=== PATIENT | female | born 1965 | race Caucasian/White ===

== ENCOUNTER 2017-09-06 18:41 | Inpatient (IN) | payer OTHER ==
[~2017-09-06] VITALS: Ht 175.3 cm; Wt 85.1 kg
[2017-09-06 19:23] LABS: ABSOLUTE BASOPHIL COUNT 0 /CUMM (0.0-0.2); ABSOLUTE EOSINOPHIL COUNT 0.2 /CUMM (0.0-0.7); ABSOLUTE GRANULOCYTE CT 5.3 /CUMM (1.4-6.5); ABSOLUTE LYMPH COUNT 1.8 /CUMM (1.2-3.4); ABSOLUTE MONOCYTE COUNT 0.6 /CUMM (0.10-0.60); BASOPHIL % 0.2 % (0.0-2.0); EOSINOPHIL % 2.7 % (0-5); GRANULOCYTE % 66.6 % (42.2-75.2); HEMATOCRIT 35.3 % (37-47); MEAN CORPUSCULAR HGB 28.6 PG (27.0-31.0); MEAN CORPUSCULAR HGB CONC 33.4 G/DL (33.0-37.0); MEAN CORPUSCULAR VOLUME 85.7 FL (81.0-99.0); MEAN PLATELET VOLUME 8.6 FL (7.4-10.4); PLATELET COUNT 221 /CUMM (130-400); RBC DISTRIBUTION WIDTH 13.1 % (11.5-14.5); RED BLOOD CELL CT 4.12 /CUMM (4.20-5.40)
--- NOTE | 2017-09-06 21:09 | ED GI/GU/ABDOMINAL COMPLAINT ---
History of Present Illness General Chief Complaint: Abdominal Pain/Flank Pain Stated Complaint: ABD PAIN X ALL DAY Source: patient Exam Limitations: no limitations Vital Signs & Intake/Output Vital Signs & Intake/Output Vital Signs Date Time Temp Pulse Resp B/P B/P Pulse O2 O2 Flow FiO2 Mean Ox Delivery Rate 09/06 2346 100.4 108 18 128/60 95 Room Air 09/06 2225 101.3 116 18 109/55 96 Room Air 09/06 2057 Room Air 09/06 1915 98.2 87 18 117/66 Room Air ED Intake and Output 09/07 0000 09/06 1200 Intake Total Output Total Balance Patient 174 lb Weight Weight Estimated Measurement Method Triage Note: RECEIVED 51 YO FEMALE C/O BILATERAL LOWER ABDOMINAL PAIN, STARTED THIS AM, GETTING PROGRESSIVELY WORSE THROUGH THE DAY. PT STATED PAIN IS SHARP AND BURNING. NO URINARY ISSUES EXCEPT PT WITH PMX OF DROPPED BLADDER. Triage Nurses Notes Reviewed? yes ? N Is pt currently ? No Onset: Abrupt Duration: day(s): (1), constant Timing: recent history Quality/Severity: cramping Location: LOWER ABD Radiation: no radiation Activities at Onset: none HPI: 51-year-old female comes into the emergency room with complaints of lower abdominal pain cramping as well as some loose stool. Symptoms began this morning. Pain is gone progressively worse. Decreased appetite. Denies any vomiting. Some associated nausea. ([facility]) Allergies Coded Allergies: amoxicillin (From AUGMENTIN) (Severe, SEVERE NAUSEA 09/06/17) clavulanic acid (From AUGMENTIN) (Severe, SEVERE NAUSEA 09/06/17) Reconcile Medications Docusate Sodium (Colace) 100 MG CAPSULE 1 CAP PO BID while on pain medications Lisinopril/Hydrochlorothiazide (Lisinopril-Hctz 10-12.5 MG Tab) 10 MG-12.5 MG TABLET 1 TAB PO DAILY htn (Reported) Meloxicam 15 MG TABLET 1 TAB PO DAILY chronic back pain (Reported) Oxycodone HCl/Acetaminophen (Oxycodone-Acetaminophen 5-325) 5 MG-325 MG TABLET 1 TAB PO Q4-6 PRN PAIN CONTROL Polyethylene Glycol 3350 (Miralax) 17 GRAM/DOSE POWDER 17 GM PO DAILY while on pain medication mix with water, juice, soda, coffee or tea Pregabalin (Lyrica) 25 MG CAPSULE 1 CAP PO DAILY fibromyalgia (Reported) (Yevgeniy NGUYỄN,Epifanio Lucero) Past History Travel History Traveled to [place] past 21 day No Medical History Any Pertinent Medical History? see below for history Neurological: NONE EENT: NONE Cardiovascular: hypertension Respiratory: NONE Gastrointestinal: NONE Hepatic: NONE Renal: NONE Musculoskeletal: NONE Psychiatric: NONE Endocrine: NONE Blood Disorders: NONE Cancer(s): NONE Pneumonia Vaccine: 10/19/11 Surgical History Surgical History: NO ABDOMINAL SUGERIES Psychosocial History What is your primary language Romanian Tobacco Use: Current Daily Use Daily Tobacco Use Amount/Type: Smokeless tobacco daily Family History Hx Contributory? No ([facility]) Review of Systems Review of Systems Constitutional: Reports: no symptoms. EENTM: Reports: no symptoms. Respiratory: Reports: no symptoms. Cardiovascular: Reports: no symptoms. GI: Reports: see HPI. Genitourinary: Reports: no symptoms. Musculoskeletal: Reports: no symptoms. Skin: Reports: no symptoms. Neurological/Psychological: Reports: no symptoms. Hematologic/Endocrine: Reports: no symptoms. Immunologic/Allergic: Reports: no symptoms. All Other Systems: Reviewed and Negative ([facility]) Physical Exam Physical Exam General Appearance: well developed/nourished, no apparent distress, alert Head: atraumatic, normal appearance Eyes: Bilateral: normal appearance, EOMI. Ears, Nose, Throat, Mouth: hearing grossly normal, moist mucous membrane Neck: normal inspection Respiratory: normal breath sounds, no respiratory distress Cardiovascular: regular rate/rhythm Gastrointestinal: soft, TENDERNESS LOWER ABD Back: normal inspection Extremities: normal range of motion Neurologic/Psych: awake, alert, oriented x 3 Skin: intact, normal color Core Measures ACS in differential dx? No Sepsis Present: No Sepsis Focused Exam Completed? No ([facility]) Progress Differential Diagnosis: appendicitis, diverticulitis, ectopic , gastritis, ischemic bowel, kidney stone, perforated viscous, SBO, UTI/pyelo Plan of Care: Orders Procedure Date/time Status Nothing by Mouth 09/07 B Active Vital Signs 09/08 31 Active Teach/Educate 09/08 31 Active Pain Treatment and Response 09/08 31 Active Nutritional Intake, Monitor 09/08 31 Active Isolation 09/08 31 Active Intake & Output 09/08 31 Active Patient Care Conference 05/16 0032 Active Activity/Ambulation 09/07 0032 Active MISSING MEDICATION FORM 09/07 UNK Active FingerStick- Glucose 09/[address] in observation 09/06 2217 Active ED Holding Orders 09/06 2217 Active Code Status 09/06 2217 Active Pathway - chart 09/06 2141 Active Patient Data 09/06 2141 Active Add-on Test (ER Only) 09/07 2115 Active EKG 09/07 2115 Active PARTIAL THROMBOPLASTIN TIME 09/06 190 Complete PROTHROMBIN TIME 09/06 190 Complete URINALYSIS 09/06 184 Complete LIPASE 09/06 184 Complete COMPREHENSIVE METABOLIC PANEL 09/06 184 Complete CBC WITHOUT DIFFERENTIAL 09/06 184 Complete INCENTIVE SPIROMETRY TRX (GEN) 09/06 UNK Active VTE Mechanical Prophylaxis 09/06 UNK Active Vital Signs 09/06 UNK Active Intake & Output 09/06 UNK Active Activity/Ambulation 09/06 UNK Active Current Medications Sig/Kaden Start time Last Medication Dose Stop Time Status Admin Docusate Sodium 100 MG BID 09/07 09 AC (Colace) Pantoprazole Sodium 40 MG DAILY 09/07 09 AC (Protonix) Polyethylene Glycol 17 GM DAILY 09/07 09 AC (Miralax) Ampicillin Sodium/ 3,000 MG Q6H 09/07 0400 AC Sulbactam Sodium (Unasyn) Sodium Chloride 100 ML (Normal Saline 0.9%) Heparin Sodium 5,000 UNIT Q8 09/06 2200 AC (Porcine) Acetaminophen 1,000 MG Q8P PRN 09/06 2144 AC (Tylenol) Diphenhydramine HCl 50 MG Q6P PRN 09/06 2144 AC (Benadryl) Lactated Ringer's 1,000 ML Q8H 09/06 214 AC 09/06 (Lactated Ringers) 2223 Morphine Sulfate 2 MG Q4P PRN 09/06 2144 AC (MORPHINE SULFATE) Morphine Sulfate 4 MG Q4P PRN 09/06 2144 AC 09/06 (MORPHINE SULFATE) 2351 Ondansetron HCl 4 MG Q6P PRN 09/06 2144 AC (Zofran) Oxycodone HCl 10 MG Q4-6 PRN PRN 09/06 2144 AC (Roxicodone) Oxycodone/ 1 TAB Q4P PRN 09/06 2144 AC Acetaminophen (Percocet) Buspirone HCl 10 MG ONCE ONE 09/06 2129 CAN (Buspar) 09/06 2130 Escitalopram Oxalate 10 MG ONCE ONE 09/06 2129 CAN (Lexapro) 09/06 2130 Trazodone HCl 25 MG ONCE ONE 09/06 2129 CAN (Desyrel) 09/06 2130 Laboratory Tests 09/06/171904: Urine Color YEL, Urine Clarity CLEAR, Urine pH 7.0, Ur Specific [place] 1.010, Urine Protein NEG, Urine Ketones NEG, Urine Nitrite NEG, Urine Bilirubin NEG, Urine Urobilinogen 0.2, Ur Leukocyte Esterase NEG, Ur Microscopic EXAM NOT REQUIRED, Urine Hemoglobin NEG, Urine Glucose NEG 09/06/171899: Anion Gap 12, Estimated GFR > 60, BUN/Creatinine Ratio 16.7, Glucose 111 H, Calcium 9.8, Total Bilirubin 0.4, AST 21, ALT 31, Alkaline Phosphatase 45, Total Protein 6.4, Albumin 3.8, Globulin 2.6, Albumin/Globulin Ratio 1.5, Lipase 110, PT 10.4, INR 0.95, APTT 31, CBC w Diff NO MAN DIFF REQ, RBC 4.12 L, MCV 85.7, MCH 28.6, MCHC 33.4, RDW 13.1, MPV 8.6, Gran % 66.6, Lymphocytes % 22.6, Monocytes % 7.9, Eosinophils % 2.7, Basophils % 0.2, Absolute Granulocytes 5.3, Absolute Lymphocytes 1.8, Absolute Monocytes 0.6, Absolute Eosinophils 0.2, Absolute Basophils 0 Diagnostic Imaging: Viewed by Me: CT Scan. Discussed w/RAD: CT Scan. Radiology Impression: PATIENT: DIANNA CASE PRESENT AGE: 51 PATIENT ACCOUNT NO: [id number] : 66 LOCATION: [facility] ORDERING PHYSICIAN: Xavi WEIR SERVICE DATE: 09/06/17 EXAM TYPE: CAT - CT ABD & PELVIS W IV CONTRAST EXAMINATION: CT ABDOMEN AND PELVIS WITH CONTRAST CLINICAL INFORMATION: Diffuse abdominal pain. COMPARISON: CT scan abdomen pelvis 11/14/2012 TECHNIQUE: Multidetector volumetric imaging was performed of the abdomen and pelvis following IV administration of 95 mL of Optiray 320 intravenous contrast. Sagittal and coronal reformatted images were obtained on the technologist's workstation. DLP: 441.68 mGy-cm FINDINGS: LUNG BASES: The visualized lung bases are unremarkable. LIVER, GALLBLADDER, AND BILIARY TREE: The liver is normal in size, shape, and attenuation. No focal hepatic lesion or biliary ductal dilatation is present. There is a 3 mm calcified gallstone at the neck of the gallbladder. There is no edema around the gallbladder. There is no bile duct dilatation. Extrahepatic CBD measures 4 mm. PANCREAS: Unremarkable. SPLEEN: Unremarkable. ADRENAL GLANDS: Unremarkable. KIDNEYS AND URETERS: The kidneys are normal in size, shape, and attenuation. No hydronephrosis, hydroureter, or calculi seen. No perinephric stranding. BLADDER: Unremarkable. MESENTERY/GASTROINTESTINAL TRACT: There is subtle edema in the right lower quadrant adjacent to the tip of the cecum with slight thickening of the tip of the cecal wall. The appendix is slightly edematous measuring 8 mm in diameter. Findings consistent with appendicitis. There is no perforation or abscess. Moderate to large amount of stool in the colon. Scattered diverticula of the colon without diverticulitis. No bowel obstruction. The small bowel loops are normal. ABDOMINAL WALL: No significant hernia is appreciated. LYMPH NODES: Normal. VASCULAR: There is atherosclerotic vascular wall calcifications of aorta without aneurysm. PELVIC VISCERA: The uterus is anteverted. IUD in the endometrial cavity. 2 cm follicle/cyst in the left ovary. OSSEOUS STRUCTURES: There is degenerative spondylosis spine with multilevel disc height narrowing and endplate spurring and facet joint arthrosis. IMPRESSION: 1. Appendicitis. 2. Cholelithiasis. No bile duct dilatation. 3. IUD in endometrial cavity. Left ovarian follicle/cyst. DICTATED BY: Vaibhav Clayton MD DATE/TIME DICTATED:09/06/172029 LABORATORY EQUIPMENT INSTALLER:RAMIRO DATE/TIME TRANSCRIBED:09/06/172029 CONFIDENTIAL, DO NOT COPY WITHOUT APPROPRIATE AUTHORIZATION. <Electronically signed in Other Vendor System> SIGNED BY: Vaibhav Clayton MD 09/06/172106 Initial ED EKG: none ([facility]) Departure Departure Disposition: STILL A PATIENT Condition: Stable Referrals: Hanh Daniel MD (PCP/Family) Departure Forms: Customer Survey General Discharge Information ([facility]) Departure Clinical Impression Primary Impression: Acute appendicitis Prescriptions: Current Visit Scripts Docusate Sodium (Colace) 1 CAP PO BID #60 CAP Polyethylene Glycol 3350 (Miralax) 17 GM PO DAILY #255 GM mix with water, juice, soda, coffee or tea Oxycodone HCl/Acetaminophen (Oxycodone-Acetaminophen 5-325) 1 TAB PO Q4-6 PRN #30 TAB OR/GI Note Spoke With: Gerardo Wakefield DO ED Treatment Decision: DIANNA CASE requires urgent operative management or an emergent procedure that cannot be performed in the Emergency Room setting. Transport To: [facility] PA/OPTOMETRIC TECH Co-Sign Statement Statement: ED Attending supervision documentation- [X] I saw and evaluated the patient. I have also reviewed all the pertinent lab results and diagnostic results. I agree with the findings and the plan of care as documented in the PA's/OPTOMETRIC TECH's documentation. X[] I have reviewed the ED Record and agree with the PA's/OPTOMETRIC TECH's documentation. [] Additions or exceptions (if any) to the PAs/OPTOMETRIC TECH's note and plan are summarized below: [Patient has acute appendicitis require surgical intervention.] (Yevgeniy NGUYỄN,Epifanio Lucero) Critical Care Note Critical Care Note Critical Care Time: 30-74 min (35) (Edmundo WEIR,[facility])
[2017-09-06 21:40] LABS: PT 10.4 SEC (9.4-12.5); PTT 31 SEC (25-37)
[2017-09-06] MEDS ORDERED: LYRICA25 M1 PO (22:58)
[2017-09-06] MEDS ORDERED: LISINOPRIL-HCT1 EAC2 PO (22:58)
[2017-09-06] MEDS ORDERED: MELOXICAM15 M1 PO (22:58)
--- NOTE | 2017-09-06 22:59 | Admission Core Measures ---
Acute Coronary Syndrome (CM) ACS Core Measures Acute Coronary Syndrome Diagnosis No Congestive Heart Failure (NEW) CHF Core Measures Congestive Heart Failure Diagnosis No Cerebrovascular Accident (NEW) CVA Core Measures CVA/TIA Diagnosis No Venous Thromboembolism VTE Core Cristin (View Protocol) VTE Risk Factors No risk factors No Mechanical VTE Prophylaxis d/t N/A MechProphylax Ordered No VTE Pharm Prophylaxis d/t NA PharmProphylax ordered Problem List As ranked by this Provider includes Assessment & Plan 1. Acute appendicitis HOME MEDS Home Med List Lisinopril/Hydrochlorothiazide (Lisinopril-Hctz 10-12.5 MG Tab) 10 MG-12.5 MG TABLET 1 TAB PO DAILY htn (Reported) Meloxicam 15 MG TABLET 1 TAB PO DAILY chronic back pain (Reported) Pregabalin (Lyrica) 25 MG CAPSULE 1 CAP PO DAILY fibromyalgia (Reported) Discontinued Medications Gabapentin 300 MG CAPSULE ANX (Reported) Discontinued reason: Per Doctor Decision
--- NOTE | 2017-09-06 23:14 | History & Physical ---
More Reinoso 09/06/17 2259: General Information and HPI History of Present Illness: This is a 51-year-old female with a past medical history significant for hypertension, chronic back pain, and fibromyalgia who presented to the Emergency Department with a chief complaint of lower abdominal pain. She reports that the pain began in the morning time and was intermittent in nature to begin with and became worse over the course of the day. She describes it as a burning and at its worst it was a 10 out of 10. She describes sitting and walking as aggravating factors with no alleviating factors. She has associated chills and diarrhea. She denies any fevers, nausea, vomiting, sick contacts, recent travel , or similar symptoms in the past. Initially she thought she had gas but as the pain persisted she felt as though something worse was going on and elected to come in for further evaluation. Prior to the onset of symptoms she had been in her usual state of health. Allergies/Medications Allergies: Coded Allergies: amoxicillin (From AUGMENTIN) (Severe, SEVERE NAUSEA 09/06/17) clavulanic acid (From AUGMENTIN) (Severe, SEVERE NAUSEA 09/06/17) Past History Travel History Traveled to [place] past 21 day No Medical History Neurological: NONE EENT: NONE Cardiovascular: hypertension Respiratory: NONE Gastrointestinal: NONE Hepatic: NONE Renal: NONE Musculoskeletal: chronic back pain, fibromyalgia Psychiatric: NONE Endocrine: NONE Blood Disorders: NONE Cancer(s): NONE Pneumonia Vaccine: 10/19/11 Surgical History Surgical History: none Past Family/Social History Psychosocial History Smoking Status: Current Everyday Smoker (Uses a vape daily) ETOH Use: denies use Illicit Drug Use: denies illicit drug use Other Social History: with 2 children, 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 Exam & Diagnostic Data Last 24 Hrs of Vital Signs/I&O Vital Signs Date Time Temp Pulse Resp B/P B/P Pulse O2 O2 Flow FiO2 Mean Ox Delivery Rate 09/06 2224 101.3 116 18 109/55 96 Room Air 09/06 2056 Room Air 09/06 1914 98.2 87 18 117/66 Room Air Physical Exam General Appearance Alert, No Acute Distress Skin No Rashes HEENT Atraumatic Abdomen Soft, mildly distended, tender to palpation in the RLQ>LLQ, with rebound and guarding Extremities No Clubbing, No Cyanosis, No Edema Last 24 Hrs of Labs/Wesly: Laboratory Tests 09/06/171904: Urine Color YEL, Urine Clarity CLEAR, Urine pH 7.0, Ur Specific [place] 1.010, Urine Protein NEG, Urine Ketones NEG, Urine Nitrite NEG, Urine Bilirubin NEG, Urine Urobilinogen 0.2, Ur Leukocyte Esterase NEG, Ur Microscopic EXAM NOT REQUIRED, Urine Hemoglobin NEG, Urine Glucose NEG 09/06/170: Anion Gap 12, Estimated GFR > 60, BUN/Creatinine Ratio 16.7, Glucose 111 H, Calcium 9.8, Total Bilirubin 0.4, AST 21, ALT 31, Alkaline Phosphatase 45, Total Protein 6.4, Albumin 3.8, Globulin 2.6, Albumin/Globulin Ratio 1.5, Lipase 110, PT 10.4, INR 0.95, APTT 31, CBC w Diff NO MAN DIFF REQ, RBC 4.12 L, MCV 85.7, MCH 28.6, MCHC 33.4, RDW 13.1, MPV 8.6, Gran % 66.6, Lymphocytes % 22.6, Monocytes % 7.9, Eosinophils % 2.7, Basophils % 0.2, Absolute Granulocytes 5.3, Absolute Lymphocytes 1.8, Absolute Monocytes 0.6, Absolute Eosinophils 0.2, Absolute Basophils 0 Diagnostic Data Other Results CT scan of the abdomen and pelvis 09/06/2017: 1. Appendicitis. 2. Cholelithiasis. No bile duct dilatation. 3. IUD in endometrial cavity. Left ovarian follicle/cyst. Assessment/Plan Assessment: This is a 51-year-old female with a past medical history significant for hypertension, chronic back pain, and fibromyalgia who presented to the Emergency Department with a chief complaint of lower abdominal pain. Workup has been obtained and reveals acute appendicitis. She will be admitted to the surgical service under the care of Dr. Wakefield. We will plan to proceed to the operating room for laparoscopic appendectomy tomorrow. In the meantime, she's been made nothing by mouth and placed on IV fluids as well as IV Unasyn. She's been ordered for when necessary analgesics and antiemetics as well as GI and DVT prophylaxis. Her home medications have been placed on hold while she is nothing by mouth. I have encouraged ambulation , incentive spirometry, turn, cough, and deep breathing techniques. Case has been discussed with Dr. Wakefield who is in agreement with the plan of care. As Ranked By This Provider Problem List: 1. Acute appendicitis Core Measures/Misc (01/09) Acute Coronary Syndrome ACS Diagnosis: No Congestive Heart Failure Congestive Heart Failure Diagnosis No Cerebrovascular Accident CVA/TIA Diagnosis: No VTE (View Protocol) VTE Risk Factors No risk factors No Mechanical VTE Prophylaxis d/t N/A MechProphylax Ordered No VTE Pharm Prophylaxis d/t NA PharmProphylax ordered Sepsis (View protocol) Sepsis Present: No Twyla MOJICAGerardo 09/07/17 1614: General Information and HPI Allergies/Medications Home Med list Docusate Sodium (Colace) 100 MG CAPSULE 1 CAP PO BID while on pain medications Lisinopril/Hydrochlorothiazide (Lisinopril-Hctz 10-12.5 MG Tab) 10 MG-12.5 MG TABLET 1 TAB PO DAILY htn (Reported) Meloxicam 15 MG TABLET 1 TAB PO DAILY chronic back pain (Reported) Oxycodone HCl/Acetaminophen (Oxycodone-Acetaminophen 5-325) 5 MG-325 MG TABLET 1 TAB PO Q4-6 PRN PAIN CONTROL Polyethylene Glycol 3350 (Miralax) 17 GRAM/DOSE POWDER 17 GM PO DAILY while on pain medication mix with water, juice, soda, coffee or tea Pregabalin (Lyrica) 25 MG CAPSULE 1 CAP PO DAILY fibromyalgia (Reported) Attending MD Review Statement Attending Statement Attending MD Statement: examined this patient, discuss w/resident/PA/SERVICES MANAGER, agreed w/resident/PA/SERVICES MANAGER, discussed with family, reviewed EMR data (avail), reviewed images Attending Assessment/Plan: Patient seen and examined, agree with above. Abdominal pain for 1 day, getting worse. Afebrile at presentation, Tm 101.3 overnight, VSS. WBC 10. Abd-soft, lower abdominal tenderness R>L, with some voluntary guarding. CT scan - read as appendicitis. NPO/IVF/IV Abx, plan for Lap Appy.
[2017-09-06] MEDS ORDERED: OXYCODONE-ACET1 EACH PO (23:15)
[2017-09-06] MEDS ORDERED: MIRALAX119 GM PO (23:15)
[2017-09-06] MEDS ORDERED: COLACE100 M1 PO (23:15)
--- NOTE | 2017-09-06 23:20 | Patient Discharge Instructions ---
Discharge Instructions General Discharge Information You were seen/treated for: Cecal diverticulitis You had these procedures: Surgery Date: 09/07/17 Name of Procedure: Laparoscopic partial cecectomy/diverticulectomy, Laparoscopic appendectomy, Laparoscopic washout Watch for these problems: Fevers greater than 101, increased abdominal pain, nausea, vomiting, excessive diarrhea, no bowel movements, redness, swelling, or unusual drainage from incisions, or any other problems, questions, or concerns No bath, but you may shower: Yes Other wound care: leave white steri strips in place. keep incisions clean & dry. dry guaze dressing changes over drain site, as needed. Diet Continue normal diet: No Recommended Diet: Low Residue Activity Full Activity/No Limits: No Activity Self Limited: Yes Pounds, do NOT lift more than: 10 (x 2weeks) Acute Coronary Syndrome Inclusion Criteria At DC or during hospital stay patient has or had the following: ACS DIAGNOSIS No Discharge Core Measures Meds if any: Prescribed or Continued at Discharge Meds if any: NOT Prescribed or Continued at Discharge Congestive Heart Failure Inclusion Criteria At DC or during hospital stay patient has or had the following: CHF DIAGNOSIS No Discharge Core Measures Meds if any: Prescribed or Continued at Discharge Meds if any: NOT Prescribed or Continued at Discharge Cerebrovascular accident Inclusion Criteria At DC or during hospital stay patient has or had the following: CVA/TIA Diagnosis No Discharge Core Measures Meds if any: Prescribed or Continued at Discharge Meds if any: NOT Prescribed or Continued at Discharge Venous thromboembolism Inclusion Criteria VTE Diagnosis No VTE Type NONE VTE Confirmed by (Test) NONE Discharge Core Measures - Per Current guidelines, there needs to be overlap - treatment for the first 5 days of Warfarin therapy. - If discharged on Warfarin prior to 5 days of - overlap therapy, the patient will need to be - assessed for post discharge needs including - *Post discharge parental anticoagulation - *Warfarin and/or parental anticoagulation education - *Follow up date to check INR post discharge At least 5 days overlap therapy as Inpatient No Meds if any: Prescribed or Continued at Discharge Note: Overlap Therapy is Warfarin and Anticoagulant Meds if any: NOT Prescribed or Continued at Discharge
--- NOTE | 2017-09-06 23:24 | Surg Short-stay <48hrs Dis Sum ---
Visit Information Visit Dates Admission Date: 09/06/17 Discharge Date: 09/10/17 Surgical Short Stay DC Summary Admission Diagnosis: Acute appendicitis Final Diagnosis: Cecal diverticulitis Procedure(s): Surgery Date: 09/07/17 Name of Procedure: Laparoscopic partial cecectomy/diverticulectomy, Laparoscopic appendectomy, Laparoscopic washout Summary/Significant Findings: This is a 51-year-old female with a past medical history significant for hypertension, chronic back pain, and fibromyalgia who presented to the Emergency Department with a chief complaint of lower abdominal pain. She was taken to the OR on 09/07/17 for laparoscopic partial cecectomy/diverticulectomy, laparoscopic appendectomy, laparoscopic washout by for a pre-op diagnosis of acute appendicitis, that was thought to actually be cecal diverticulitis during surgery. A LAKESHA drain was left in place, and iv antibiotics were continued during the hospitalization. Slow diet advancement as tolerated, with return of bowel function. LAKESHA drain removed prior to discharge home. Discharge with one week of augmentin, for presumptive treatment of cecal diverticulitis. Condition at Discharge: Stable Discharge Disposition: home or self care Discharge instructions provided to patient/family: Yes Post discharge follow-up plan: one week follow up with continue antibiotics for one week Copies to: Gerardo Wakefield DO; María NGUYỄN,Hanh Copies to: Gerardo Wakefield DO
[2017-09-06 23:46] VITALS: BP 128/60
[2017-09-07 06:20] VITALS: BP 124/68
[2017-09-07 08:49] LABS: ABSOLUTE BASOPHIL COUNT 0 /CUMM (0.0-0.2); ABSOLUTE EOSINOPHIL COUNT 0 /CUMM (0.0-0.7); ABSOLUTE GRANULOCYTE CT 10.1 /CUMM (1.4-6.5); ABSOLUTE LYMPH COUNT 0.9 /CUMM (1.2-3.4); ABSOLUTE MONOCYTE COUNT 0.9 /CUMM (0.10-0.60); BASOPHIL % 0 % (0.0-2.0); EOSINOPHIL % 0.1 % (0-5); GRANULOCYTE % 84.9 % (42.2-75.2); HEMATOCRIT 30.5 % (37-47); MEAN CORPUSCULAR HGB 28.4 PG (27.0-31.0); MEAN CORPUSCULAR HGB CONC 33.2 G/DL (33.0-37.0); MEAN CORPUSCULAR VOLUME 85.5 FL (81.0-99.0); MEAN PLATELET VOLUME 9.2 FL (7.4-10.4); PLATELET COUNT 176 /CUMM (130-400); RBC DISTRIBUTION WIDTH 13.7 % (11.5-14.5); RED BLOOD CELL CT 3.57 /CUMM (4.20-5.40); WHITE BLOOD CELL COUNT 11.9 /CUMM (4.8-10.8)
--- NOTE | 2017-09-07 11:40 | PN- General Surgery ---
Subjective Subjective: hd#1 acute appendicitis c/o abdominal pain only deneis cp, sob feels worse today than yesterday Objective Vital Signs and I&Os Vital Signs Date Time Temp Pulse Resp B/P B/P Pulse O2 O2 Flow FiO2 Mean Ox Delivery Rate 09/07 0620 100.6 104 18 124/68 93 Room Air 09/06 2346 100.4 108 18 128/60 95 Room Air 09/06 2225 101.3 116 18 109/55 96 Room Air 09/067 Room Air 09/06 1915 98.2 87 18 117/66 Room Air Intake & Output 09/07 0800 09/07 0000 09/06 1600 09/06 0800 09/06 0000 Intake Total [id number] Output Total Balance 8630621 Intake, IV [id number] Patient 174 lb Weight Weight Estimated Measurement Method Physical Exam: cv; rrr lungs; clear abd: soft, +rovsing non distended, +rebound rlq ext: warm, distal cms intact Assessment/Plan Assessment/Plan acute appendicitis place in observation overnight due to mechanical failure in OR plan cont iv antibiotics, pain meds, serial abd exams to OR today for lap appy Core Measures Venous Thromboembolism VTE Risk Factors No risk factors No Mechanical VTE Prophylaxis d/t N/A MechProphylax Ordered No VTE Pharm Prophylaxis d/t NA PharmProphylax ordered
--- NOTE | 2017-09-07 16:38 | Operative Report ---
Operative/Inv Procedure Report Surgery Date: 09/07/17 Name of Procedure: Laparoscopic partial cecectomy/diverticulectomy, Laparoscopic appendectomy, Laparoscopic washout Pre-Operative Diagnosis: Acute appendicitis Post-Operative Diagnosis: Cecal diverticulitis Estimated Blood Loss: less than 50ml Surgeon/Scissors Sharpener: Gerardo Wakefield DO Anesthesia: general endotracheal tube IV Fluids: 1700 cc Drains: 10 Fr LLQ LAKESHA drain Specimens: Appendix/cecal diverticulum Complications: None Condition: Stable Operative Indication: This is a 51-year-old female that presented to the emergency room with abdominal pain. After appropriate workup was completed the patient was diagnosed with appendicitis. A laparoscopic possible open appendectomy was discussed in detail. All risks including but not limited to bleeding, infection, and injury to surrounding bowel were discussed in detail. The patient understood everything and decided to proceed. Operative/Procedure Note Note: The patient was brought to the operating room and placed on the table in supine position. Venodyne stockings were placed and adequate general endotracheal anesthesia was obtained. The patient was prepped and draped in standard surgical fashion. Began the procedure by making a 2 cm transverse incision in the infraumbilical crease. Incision was carried down to the fascia. Once the fascia was clearly visualized it was picked up between 2 Maya clamps and divided in the midline. Once we entered the peritoneum 2 stay 0 Vicryl sutures were placed on each side and a 12 mm blunt port was inserted. The abdominal cavity was insufflated to 15 mmHg. And a 10 mm 30 laparoscope was introduced. Upon initial examination purulent fluid was noted along the right gutter and pelvis. Accessory trocars were placed, both 5 mm, one in the left lower quadrant and one suprapubic. Ascending colon was identified and traced proximally, terminal ileum was identified, and we did note the appendix coursing into the pelvis. The appendix appeared slightly hyperemic, but with further mobilization of the omentum off of the cecum we noted a large necrotic appearing diverticulum on the anterior surface of the cecum, no obvious perforation was noted. Using blunt dissection and harmonic scalpel the appendix was carefully dissected away from surrounding structures. Once the appendix was away from the omentum and the sidewall the mesoappendix was divided using Harmonic scalpel maintaining hemostasis until the appendiceal base was clearly visualized and freely up in the air. At that point we switched to a 5 mm laparoscope and a 45 mm norman Endo ROLAND load was inserted and the base was transected. The cecum was examined and the base of the diverticulum appeared healthy and wide, the wall of the cecum appeared healthy as well. A decision was made to excise the diverticulum and using 2 loads of 45 mm norman loads the diverticulum was transected at the base. Great care was taken to stay away from the ileocecal valve and to staple on healthy tissue. The diverticulum and the appendix were placed in an endobag and removed through the umbilical trocar site. Diverticulum was examined and appeared to be a true diverticulum with no obvious mass. The abdominal cavity was reinsufflated and we switched back to a 10 mm laparoscope. Staple line was examined and some bleeding was noted, that was controlled using endoclips. The cecal staple line was oversewn using 2-0 Vicryl suture in a running fashion in double layer imbricating the staple line, once again making sure to stay away from the ileocecal valve. At the completion the staple line was examined and appeared intact with no bleeding, omentum was tacked to the staple line as well using the same suture. No other abnormalities were noted. The pelvis and the right lower quadrant were irrigated until clear. A 10 Fr LAKESHA drain was placed through the left lower quadrant port site into the pelvis and coming up the right gutter. All ports were removed under direct visualization, no obvious bleeding was noted. The umbilical trocar site was closed using 0 Vicryl suture. The skin was closed using 4-0 Monocryl. Steri- Strips and dressings were placed. The patient was successfully extubated and transferred to the recovery room in stable condition. The patient tolerated procedure well with no complications. Findings: Slightly hyperemic appendix, purulent peritonitis, necrotic cecal diverticulum CC: María NGUYỄN,Hanh
[2017-09-07 17:30] VITALS: BP 118/60
--- NOTE | 2017-09-07 18:56 | PN- General Surgery ---
Subjective Subjective: POC SOME ABD PAIN, JUST HAD MEDS. NPO. +VOID. NO N/V, NO CP/SOB Objective Vital Signs and I&Os Vital Signs Date Time Temp Pulse Resp B/P B/P Pulse O2 O2 Flow FiO2 Mean Ox Delivery Rate 09/07 1730 97.9 74 18 118/60 09/07 0620 100.6 104 18 124/68 93 Room Air 09/06 2346 100.4 108 18 128/60 95 Room Air 09/06 2225 101.3 116 18 109/55 96 Room Air 09/06 2057 Room Air Intake & Output 09/07 1600 09/07 0800 09/07 0000 09/06 1600 09/06 0800 09/06 0000 Intake Total 392 [id number] Output Total Balance 690 [id number] Intake, IV [id number] Intake, Oral 800 Patient 174 lb Weight Weight Estimated Measurement Method Physical Exam: gen- nad card-s1s2 pulm- no audible wheeze abd- raine serosang, approx 10cc in bulb. ttp thoughout. dressings cdi ext- calves soft nt Assessment/Plan Assessment/Plan A- POD0 sp lap partial cecectomy/diverticulectomy and lap appy with washout due to cecal diverticulitis, stable with expected postop pain P- continuous santo/flagyl oob, ambulate, ist strict i&os prn pain meds raine to self suction npo, ivf for now hepsq, alps will dw attending Core Measures Venous Thromboembolism VTE Risk Factors No risk factors No Mechanical VTE Prophylaxis d/t N/A MechProphylax Ordered No VTE Pharm Prophylaxis d/t NA PharmProphylax ordered
[2017-09-07 22:45] VITALS: BP 110/60
[2017-09-08 06:27] VITALS: BP 112/70
--- NOTE | 2017-09-08 07:30 | PN- General Surgery ---
See Addendum Subjective Subjective: Patient continues to complain of abdominal pain, which she desribes as incisional and crampy. She reports passing a small amount of flatus. Denies n/v/ f/c, c/p or sob. She has been up ambulating to the bathroom, voiding spontanously. Objective Vital Signs and I&Os Vital Signs Date Time Temp Pulse Resp B/P B/P Pulse O2 O2 Flow FiO2 Mean Ox Delivery Rate 09/08 06 97.6 81 18 112/70 92 09/07 2245 97.6 75 19 110/60 95 Nasal Cannula 09/07 2225 Nasal 2.0L Cannula 09/07 2020 Nasal 1.0L Cannula 09/07 173 97.9 74 18 118/60 09/07 1730 96 Nasal 2.0L Cannula Intake & Output 09/08 0800 09/08 0000 09/07 1600 09/07 0800 09/07 0000 09/06 1600 Intake Total 1000 375 226 [id number] Output Total 520 240 Balance 480 135 439 [id number] Intake, IV 1000 973 [id number] Intake, Oral 800 Output, 20 40 Drainage Output, Urine 500 200 Patient 174 lb Weight Weight Estimated Measurement Method Physical Exam: Gen - resting uncomfortably due to pain in nad Cardiac - S1S2 noted Lungs - no audible wheeze abd - soft, nondistended, 2 lap dressing c/d/i, LLQ LAKESHA in place, drainaing serosanguineous drainage, approx 15cc, stripped to patency, moderately tender throughout no rebound or guarding Ext - no edema or calf tenderness alps in place Assessment/Plan Assessment/Plan 51 F POD 1 s/p laparoscopic partial cecectomy/diverticulectomy and appendectomy with washout due to cecal diverticulitis, stable with expected postop pain Keep NPO, IVF Cont IV santo/flagyl IV pain meds prn LAKESHA to blb suction Strict I&Os DVT ppx - hsq Encourage IS, ambulation Will d/w Dr. Wakefield Core Measures Venous Thromboembolism VTE Risk Factors No risk factors No Mechanical VTE Prophylaxis d/t N/A MechProphylax Ordered No VTE Pharm Prophylaxis d/t NA PharmProphylax ordered
[2017-09-08 08:24] LABS: ABSOLUTE BASOPHIL COUNT 0 /CUMM (0.0-0.2); ABSOLUTE EOSINOPHIL COUNT 0 /CUMM (0.0-0.7); ABSOLUTE GRANULOCYTE CT 11.3 /CUMM (1.4-6.5); ABSOLUTE LYMPH COUNT 0.6 /CUMM (1.2-3.4); ABSOLUTE MONOCYTE COUNT 0.4 /CUMM (0.10-0.60); BASOPHIL % 0 % (0.0-2.0); EOSINOPHIL % 0 % (0-5); HEMATOCRIT 30.5 % (37-47); MEAN CORPUSCULAR HGB 28.7 PG (27.0-31.0); MEAN CORPUSCULAR HGB CONC 33.4 G/DL (33.0-37.0); MEAN CORPUSCULAR VOLUME 85.9 FL (81.0-99.0); MEAN PLATELET VOLUME 9.5 FL (7.4-10.4); PLATELET COUNT 164 /CUMM (130-400); RBC DISTRIBUTION WIDTH 13.5 % (11.5-14.5); RED BLOOD CELL CT 3.55 /CUMM (4.20-5.40); WHITE BLOOD CELL COUNT 12.4 /CUMM (4.8-10.8)
[2017-09-08 09:18] LABS: GRANULOCYTE % 91.6 % (42.2-75.2)
[2017-09-08 14:02] VITALS: BP 130/62
[2017-09-08 21:39] VITALS: BP 116/68
[2017-09-09 06:40] VITALS: BP 108/62
--- NOTE | 2017-09-09 09:20 | PN- General Surgery ---
Subjective Subjective: POD#2 S/P LAP CECECTOMY/APPENDECTOMY COMFORTABLE THIS AM TOLERATING CLEAR DIET DENEIS CP, SOB, NO N+V Objective Vital Signs and I&Os Vital Signs Date Time Temp Pulse Resp B/P B/P Pulse O2 O2 Flow FiO2 Mean Ox Delivery Rate 09/09 0640 97.7 68 19 108/62 95 Room Air 09/08 2139 98.3 78 18 116/68 94 09/08 1402 98.3 100 20 130/62 94 Room Air Intake & Output 09/09 1600 09/09 0800 09/09 0000 09/08 1600 09/08 0800 09/08 0000 Intake Total 1000 1000 1000 1000 375 Output Total 390 20 720 520 240 Balance 610 980 280 480 135 Intake, IV 1000 1000 1000 1000 375 Output, 90 20 20 20 40 Drainage Output, Urine 300 700 500 200 Patient 188 lb 172 lb Weight Weight Bed scale Measurement Method Physical Exam: CV: RRR LUNGS: CLEAR ABD: SOFT, +BS EXPECTED TENDERNESS TO PALP LAKESHA: SEROUS DRAINAGE EXT: WARM, DISTAL CMS INATCT Assessment/Plan Assessment/Plan SURGICAL STABLE PLAN OOB/AMBULATE ADVANCE DIET TOLERATED CONT IV ABX F/U AM LABS WILL D/C ON AUGMENTIN 875MG BID FOR ONE WK AFTER D/C D/C DRAIN TOMORROW Core Measures Venous Thromboembolism VTE Risk Factors No risk factors No Mechanical VTE Prophylaxis d/t N/A MechProphylax Ordered No VTE Pharm Prophylaxis d/t NA PharmProphylax ordered
[2017-09-09 09:28] LABS: ABSOLUTE BASOPHIL COUNT 0 /CUMM (0.0-0.2); ABSOLUTE EOSINOPHIL COUNT 0 /CUMM (0.0-0.7); ABSOLUTE LYMPH COUNT 1.4 /CUMM (1.2-3.4); ABSOLUTE MONOCYTE COUNT 0.9 /CUMM (0.10-0.60); BASOPHIL % 0.2 % (0.0-2.0); EOSINOPHIL % 0.6 % (0-5); GRANULOCYTE % 71.1 % (42.2-75.2); HEMATOCRIT 29.3 % (37-47); MEAN CORPUSCULAR HGB 28.5 PG (27.0-31.0); MEAN CORPUSCULAR HGB CONC 32.7 G/DL (33.0-37.0); MEAN PLATELET VOLUME 9.9 FL (7.4-10.4); PLATELET COUNT 172 /CUMM (130-400); RBC DISTRIBUTION WIDTH 13.6 % (11.5-14.5); RED BLOOD CELL CT 3.37 /CUMM (4.20-5.40); WHITE BLOOD CELL COUNT 8.4 /CUMM (4.8-10.8)
[2017-09-09] MEDS ORDERED: FLAGYL500 MG PO (11:37)
[2017-09-09] MEDS ORDERED: CIPRO500 M1 PO (11:37)
[2017-09-09] MEDS ORDERED: PERCOCET 5-3251 EACH PO (11:42)
[2017-09-09] MEDS ORDERED: COLACE100 M1 PO (11:42)
[2017-09-09 13:49] VITALS: BP 100/60
[2017-09-09 22:14] VITALS: BP 110/70
[2017-09-10 06:20] VITALS: BP 132/78
[2017-09-10 08:35] LABS: ABSOLUTE BASOPHIL COUNT 0 /CUMM (0.0-0.2); ABSOLUTE EOSINOPHIL COUNT 0.2 /CUMM (0.0-0.7); ABSOLUTE GRANULOCYTE CT 3.1 /CUMM (1.4-6.5); ABSOLUTE LYMPH COUNT 1.8 /CUMM (1.2-3.4); ABSOLUTE MONOCYTE COUNT 0.8 /CUMM (0.10-0.60); BASOPHIL % 0.5 % (0.0-2.0); EOSINOPHIL % 3.6 % (0-5); GRANULOCYTE % 52.6 % (42.2-75.2); HEMATOCRIT 29.9 % (37-47); MEAN CORPUSCULAR HGB 28.8 PG (27.0-31.0); MEAN CORPUSCULAR HGB CONC 33.6 G/DL (33.0-37.0); MEAN CORPUSCULAR VOLUME 85.6 FL (81.0-99.0); MEAN PLATELET VOLUME 9.9 FL (7.4-10.4); PLATELET COUNT 176 /CUMM (130-400); RBC DISTRIBUTION WIDTH 13.3 % (11.5-14.5); RED BLOOD CELL CT 3.48 /CUMM (4.20-5.40); WHITE BLOOD CELL COUNT 5.9 /CUMM (4.8-10.8)
--- NOTE | 2017-09-10 11:36 | PN- General Surgery ---
Subjective Subjective: Patient feels comfortable, pain controlled, LAKESHA with moderate amount of fluid 60 cc since 2 hours ago. no fevers or chills tolarating POs without nausea Objective Vital Signs and I&Os Vital Signs Date Time Temp Pulse Resp B/P B/P Pulse O2 O2 Flow FiO2 Mean Ox Delivery Rate 09/10 0620 97.9 59 18 132/78 95 Room Air 09/09 2214 98.2 68 20 110/70 97 09/09 1349 98.4 75 20 100/60 97 Room Air Intake & Output 09/10 0800 09/10 0000 09/09 1600 09/09 0800 09/09 0000 Intake Total 171 184 5183 1000 1000 Output Total 30 100 40 390 20 Balance 202 644 7438 610 980 Intake, IV 761 562 5400 1000 Intake, Oral 943 337 0550 Output, 30 100 40 90 20 Drainage Output, Urine 300 Patient 188 lb 188 lb Weight Physical Exam: patient is lying in bed without complaints VSS afebrile abdomen soft, generalized soreness +BS LAKESHA with 60cc blood tinged fluid bilateral lower extremities without edema Admission Lab Results I reviewed the following labs: Laboratory Tests 09/10 0745 Chemistry Sodium (137 - 145 mmol/L) 140 Potassium (3.5 - 5.1 mmol/L) 4.0 Chloride (98 - 107 mmol/L) 108 H Carbon Dioxide (22 - 30 mmol/L) 22 Anion Gap (5 - 16) 10 BUN (7 - 17 mg/dL) 12 Creatinine (0.5 - 1.0 mg/dL) 0.6 Estimated GFR (>60 ml/min) > 60 BUN/Creatinine Ratio (7 - 25 %) 20.0 Hematology CBC w Diff NO MAN DIFF REQ WBC (4.8 - 10.8 /CUMM) 5.9 RBC (4.20 - 5.40 /CUMM) 3.48 L Hgb (12.0 - 16.0 G/DL) 10.0 L Hct (37 - 47 %) 29.9 L MCV (81.0 - 99.0 FL) 85.6 MCH (27.0 - 31.0 PG) 28.8 MCHC (33.0 - 37.0 G/DL) 33.6 RDW (11.5 - 14.5 %) 13.3 Plt Count (130 - 400 /CUMM) 176 MPV (7.4 - 10.4 FL) 9.9 Gran % (42.2 - 75.2 %) 52.6 Lymphocytes % (20.5 - 51.1 %) 29.9 Monocytes % (1.7 - 9.3 %) 13.4 H Eosinophils % (0 - 5 %) 3.6 Basophils % (0.0 - 2.0 %) 0.5 Absolute Granulocytes (1.4 - 6.5 /CUMM) 3.1 Absolute Lymphocytes (1.2 - 3.4 /CUMM) 1.8 Absolute Monocytes (0.10 - 0.60 /CUMM) 0.8 H Absolute Eosinophils (0.0 - 0.7 /CUMM) 0.2 Absolute Basophils (0.0 - 0.2 /CUMM) 0 Assessment/Plan Assessment/Plan S/P poonam appy, partial cectomy hold off D/C til this evening will follow drain outputs continue with regular diet Core Measures Venous Thromboembolism VTE Risk Factors No risk factors No Mechanical VTE Prophylaxis d/t N/A MechProphylax Ordered No VTE Pharm Prophylaxis d/t NA PharmProphylax ordered
[2017-09-10 14:24] VITALS: BP 118/60
[2017-09-10] MEDS ORDERED: GABAPENTIN300 M2 (14:41)
== END 2017-09-10 14:50 | DRG 330 ==
LOC: ERH 18:41 → ERHI 22:18 → 2NA 22:18 → ENRESERV 22:50 → 2NA 23:31 → ENTRNSPT 09-07 17:10 → EDTRNSPT 09-07 17:11 → EDTRNSPTSTS 09-07 17:11 → CMPTRNSPT 09-07 17:28 → 2NA 09-08 11:17 → ENPENDDIS 09-10 14:16 → 2NA 09-10 14:50
PROVIDERS: Physician Assistant; Physician Assistant Medical; Physician Assistant Surgical
PROC: 0DTJ4ZZ Resection of Appendix, Percutaneous Endoscopic Approach (ICD-10-PCS; principal; 2017-09-07)
PROC: 0DBH4ZZ Excision of Cecum, Percutaneous Endoscopic Approach (ICD-10-PCS; 2017-09-07)
DX: K35.3 Acute appendicitis with localized peritonitis (principal); K57.32 Diverticulitis of large intestine without perforation or abscess without bleeding; M79.7 Fibromyalgia; I10 Essential (primary) hypertension; F17.200 Nicotine dependence, unspecified, uncomplicated; M54.5 Low back pain
CPT/HCPCS: 2NASP; 36592; 74177; 81003; 82436; 93005; 93010; 96374; 96375; 99291; C9399; J0131; J0690; J0696; J1200; J1644; J1885; J2405; J7042; J7120

== ENCOUNTER 2017-11-09 18:33 | Emergency (ER) | payer OTHER ==
[~2017-11-09] VITALS: Ht 175.3 cm; Wt 78.0 kg
[~2017-11-09 18:33] MED LIST: CIPRO500 M1 PO; COLACE100 M1 PO; FLAGYL500 MG PO; GABAPENTIN300 M2; LISINOPRIL-HCT1 EAC2 PO; LYRICA25 M1 PO; MELOXICAM15 M1 PO; MIRALAX119 GM PO; OXYCODONE-ACET1 EACH PO; PERCOCET 5-3251 EACH PO
--- NOTE | 2017-11-09 19:07 | ED GENERAL ADULT ---
History of Present Illness General Chief Complaint: Abdominal Pain/Flank Pain Stated Complaint: ABD PAIN Source: patient Exam Limitations: no limitations Vital Signs & Intake/Output Vital Signs & Intake/Output Vital Signs Date Time Temp Pulse Resp B/P B/P Pulse O2 O2 Flow FiO2 Mean Ox Delivery Rate 11/09 2111 92 128/66 11/09 1855 98.9 86 16 131/85 99 Room Air ED Intake and Output 11/10 0000 11/09 1200 Intake Total Output Total Balance Patient 172 lb Weight Allergies Coded Allergies: amoxicillin (From AUGMENTIN) (Severe, SEVERE NAUSEA 09/06/17) clavulanic acid (From AUGMENTIN) (Severe, SEVERE NAUSEA 09/06/17) Reconcile Medications Acetaminophen 325 MG TABLET 2-3 TAB PO PRN PAIN (Reported) Dicyclomine HCl 20 MG TABLET 1 TAB PO BID PRN pain Gabapentin 600 MG TABLET 1 TAB PO BID NERVE PAIN (Reported) Lisinopril/Hydrochlorothiazide (Lisinopril-Hctz 10-12.5 MG Tab) 10 MG-12.5 MG TABLET 1 TAB PO DAILY htn (Reported) Multiple Vitamin (Multivitamins) 1 EACH TABLET 1 TAB PO DAILY SUPPLEMENT ( Reported) Triage Note: PT STATES THAT SHE HAD A CO AYANA RESECTION IN AUGUST DUE TO DIVERTICULITIS , AND THAT YESTERDAY SHE STARTED WITH LOW ABD PAIN THAT HAS BEEN CONSTANT AND INCREASING IN INTENSITY . DENIES N/V. AFEBRILE AT TRIAGE. LAST ATE AROUND 1500 Triage Nurses Notes Reviewed? yes Onset: Gradual Duration: day(s): Timing: intermittent HPI: 52-year-old female with a history of hypertension, fibromyalgia, diverticulitis (status post colon resection) presenting with lower abdominal cramping and watery diarrhea since yesterday. Reports intermittent abdominal cramping across the entire lower abdomen. Endorses 2-3 episodes of diarrhea since onset. Denies fevers, nausea, vomiting, bloody stools, melena. No recent foul foods, travel, antibiotics, or sick contacts. Patient presents to the emergency department because she is concerned this may be another episode of diverticulitis. Past History Travel History Traveled to [place] past 21 day No Medical History Any Pertinent Medical History? 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 No Review of Systems Review of Systems Constitutional: Reports: no symptoms. EENTM: Reports: no symptoms. Respiratory: Reports: no symptoms. Cardiovascular: Reports: no symptoms. GI: Reports: see HPI. Genitourinary: Reports: no symptoms. Musculoskeletal: Reports: no symptoms. Skin: Reports: no symptoms. Neurological/Psychological: Reports: no symptoms. Hematologic/Endocrine: Reports: no symptoms. Immunologic/Allergic: Reports: no symptoms. All Other Systems: Reviewed and Negative Physical Exam Physical Exam General Appearance: well developed/nourished, no apparent distress, alert, awake Head: atraumatic, normal appearance Eyes: Bilateral: normal appearance. Neck: normal inspection Respiratory: normal breath sounds, lungs clear Cardiovascular: regular rate/rhythm Gastrointestinal: soft, non-tender Back: normal inspection Extremities: normal inspection Neurologic/Psych: awake, alert, oriented x 3, normal gait, normal mood/affect Skin: intact, normal color, warm/dry Core Measures ACS in differential dx? No CVA/TIA Diagnosis: No Sepsis Present: No Sepsis Focused Exam Completed? No Progress Differential Diagnoses I considered the following diagnoses in my evaluation of the patient: [Viral enteritis versus viral colitis versus food poisoning versus diverticulitis versus bowel obstruction] Plan of Care: Orders Procedure Date/time Status URINE 11/10 1907 Complete URINALYSIS 11/10 1839 Complete LIPASE 11/10 1839 Complete LACTIC ACID 11/10 1839 Complete COMPREHENSIVE METABOLIC PANEL 11/10 1839 Complete CBC WITHOUT DIFFERENTIAL 11/10 1839 Complete Laboratory Tests 11/09/17 2140: Lactic Acid Cancelled 11/09/171913: Urine Test NEGATIVE 11/09/171913: Urine Color STRAW, Urine Clarity CLEAR, Urine pH 7.5, Ur Specific [place] 1.010, Urine Protein NEG, Urine Ketones NEG, Urine Nitrite NEG, Urine Bilirubin NEG, Urine Urobilinogen 0.2, Ur Leukocyte Esterase NEG, Ur Microscopic EXAM NOT REQUIRED, Urine Hemoglobin NEG, Urine Glucose NEG 11/09/171908: Anion Gap 10, Estimated GFR > 60, BUN/Creatinine Ratio 15.0, Glucose 102 H, Lactic Acid 1.1, Calcium 9.8, Total Bilirubin 0.2, AST 17, ALT 31, Alkaline Phosphatase 49, Total Protein 6.9, Albumin 4.0, Globulin 2.9, Albumin/Globulin Ratio 1.4, Lipase 77, CBC w Diff NO MAN DIFF REQ, RBC 4.59, MCV 84.7, MCH 28.3, MCHC 33.4, RDW 14.7 H, MPV 8.3, Gran % 47.4, Lymphocytes % 37.3, Monocytes % 10.8 H, Eosinophils % 4.1, Basophils % 0.4, Absolute Granulocytes 3.4, Absolute Lymphocytes 2.7, Absolute Monocytes 0.8 H, Absolute Eosinophils 0.3, Absolute Basophils [address] scan IMPRESSION: No acute change of the abdomen or pelvis. There is no acute abnormality of the bowel. There is a small gallstone at the neck of the gallbladder but no acute change of the gallbladder and no bile duct dilatation. IUD in the endometrial cavity. Labs unremarkable. Likely with viral/inflammatory enteritis versus colitis. Counseled on supportive care, given rx bentyl, and strict return precautions. Will follow up with her PMD for reevaluation. Initial ED EKG: none Departure Departure Disposition: HOME OR SELF CARE Condition: Stable Clinical Impression Primary Impression: Abdominal pain Secondary Impressions: Diarrhea Referrals: Hanh Daniel MD (PCP/Family) Additional Instructions: Use Bentyl as needed for abdominal pain. Maintain adequate fluid intake. Follow-up with your primary care provider for reevaluation. Return to the emergency department for any new or worsening symptoms. Departure Forms: Customer Survey General Discharge Information Prescriptions: Current Visit Scripts Dicyclomine HCl 1 TAB PO BID PRN pain #60 TAB Critical Care Note Critical Care Note Critical Care Time: non-applicable
[2017-11-09] MEDS ORDERED: ACETAMINOPHEN325 M2 PO (19:36)
[2017-11-09] MEDS ORDERED: GABAPENTIN600 M1 PO (19:37)
[2017-11-09] MEDS ORDERED: MULTIVITAMINS1 EAC9 PO (19:38)
[2017-11-09 19:49] LABS: ABSOLUTE BASOPHIL COUNT 0 /CUMM (0.0-0.2); ABSOLUTE EOSINOPHIL COUNT 0.3 /CUMM (0.0-0.7); ABSOLUTE GRANULOCYTE CT 3.4 /CUMM (1.4-6.5); ABSOLUTE LYMPH COUNT 2.7 /CUMM (1.2-3.4); ABSOLUTE MONOCYTE COUNT 0.8 /CUMM (0.10-0.60); BASOPHIL % 0.4 % (0.0-2.0); EOSINOPHIL % 4.1 % (0-5); GRANULOCYTE % 47.4 % (42.2-75.2); HEMATOCRIT 38.8 % (37-47); MEAN CORPUSCULAR HGB 28.3 PG (27.0-31.0); MEAN CORPUSCULAR HGB CONC 33.4 G/DL (33.0-37.0); MEAN CORPUSCULAR VOLUME 84.7 FL (81.0-99.0); MEAN PLATELET VOLUME 8.3 FL (7.4-10.4); PLATELET COUNT 242 /CUMM (130-400); RBC DISTRIBUTION WIDTH 14.7 % (11.5-14.5); RED BLOOD CELL CT 4.59 /CUMM (4.20-5.40); WHITE BLOOD CELL COUNT 7.2 /CUMM (4.8-10.8)
--- NOTE | 2017-11-09 20:52 | CT SCAN REPORT ---
EXAMINATION: CT ABDOMEN AND PELVIS WITH CONTRAST CLINICAL INFORMATION: Lower abdominal pain. COMPARISON: CT scan abdomen pelvis 09/06/2017, 11/14/2012 TECHNIQUE: Multidetector volumetric imaging was performed of the abdomen and pelvis following IV administration of 98 mL of Optiray 320 intravenous contrast. Sagittal and coronal reformatted images were obtained on the technologist's workstation. DLP: 436.19 mGy-cm FINDINGS: LUNG BASES: The visualized lung bases are unremarkable. LIVER, GALLBLADDER, AND BILIARY TREE: The liver is normal in size, shape, and attenuation. No focal hepatic lesion or biliary ductal dilatation is present. There is a 7 mm calcified gallstone at the neck of the gallbladder. No edema of the gallbladder, and no pericholecystic fluid. No dilatation of the bile ducts. PANCREAS: Unremarkable. SPLEEN: Unremarkable. ADRENAL GLANDS: Unremarkable. KIDNEYS AND URETERS: The kidneys are normal in size, shape, and attenuation. No hydronephrosis, hydroureter, or calculi seen. No perinephric stranding. BLADDER: Unremarkable. GASTROINTESTINAL TRACT: The small and large bowel are unremarkable. There are a few scattered diverticula but there is no diverticulitis. There is no bowel wall thickening or edema. There is a moderate volume of stool in the colon. The appendix is surgically removed. Surgical sutures at the tip of the cecum.. The small bowel loops are unremarkable. ABDOMINAL WALL: No significant hernia is appreciated. LYMPH NODES: Normal. VASCULAR: Unremarkable. PELVIC VISCERA: Uterus is anteverted. IUD in the endometrial cavity. No adnexal abnormality. 1.7 cm follicle/cyst in the left ovary. OSSEOUS STRUCTURES: Degenerative spondylosis of spine multilevel disc height narrowing and endplate spurring and facet joint arthrosis. Vacuum disc phenomenon at L2-L3 through the L5-S1 disc. IMPRESSION: No acute change of the abdomen or pelvis. There is no acute abnormality of the bowel. There is a small gallstone at the neck of the gallbladder but no acute change of the gallbladder and no bile duct dilatation. IUD in the endometrial cavity.
[2017-11-09] MEDS ORDERED: DICYCLOMINE HCL20 M1 PO (21:07)
[2017-11-09 21:11] VITALS: BP 128/66
== END 2017-11-09 21:17 ==
LOC: ERH 18:33
PROVIDERS: Physician Assistant
DX: R10.9 Unspecified abdominal pain (principal); R19.7 Diarrhea, unspecified
CPT/HCPCS: 74177; 81003; 81025; 96361; 96374

== ENCOUNTER 2017-12-30 11:18 | Emergency (ER) | payer OTHER ==
[~2017-12-30] VITALS: Ht 175.3 cm; Wt 79.4 kg
[~2017-12-30 11:18] MED LIST changes: +ACETAMINOPHEN325 M2 PO; +DICYCLOMINE HCL20 M1 PO; +GABAPENTIN600 M1 PO; +MULTIVITAMINS1 EAC9 PO
[2017-12-30] MEDS ORDERED: OXYCODONE-ACET1 EACH PO (12:58)
[2017-12-30 14:18] VITALS: BP 121/66
--- NOTE | 2018-01-12 14:48 | ED GENERAL ADULT ---
History of Present Illness General Chief Complaint: Female Urogenital Problems Stated Complaint: DIOGO FREDERICK, BLADDER PAIN, S/P SURGERY Source: patient Exam Limitations: no limitations Vital Signs & Intake/Output Vital Signs & Intake/Output Reviewed Allergies Coded Allergies: amoxicillin (From AUGMENTIN) (Severe, SEVERE NAUSEA 09/06/17) clavulanic acid (From AUGMENTIN) (Severe, SEVERE NAUSEA 09/06/17) Reconcile Medications Gabapentin 600 MG TABLET 1 TAB PO BID NERVE PAIN (Reported) Lisinopril/Hydrochlorothiazide (Lisinopril-Hctz 10-12.5 MG Tab) 10 MG-12.5 MG TABLET 1 TAB PO DAILY htn (Reported) Oxycodone HCl/Acetaminophen (Oxycodone-Acetaminophen 5-325) 5 MG-325 MG TABLET 1 TAB PO BIDP PRN PAIN (Reported) Triage Note: PT SENT IN BY DR. FREDERICK. PT STATES SHE HAD BLADDER SLING AND HYSTERECOMY ON TUESDAY. PT HAVING FREQUENT URINATION SO HER DR. WANTED HER CHECKED TO MAKE SURE THAT HER BLADDER WAS EMPYING. Triage Nurses Notes Reviewed? yes HPI: 52-year-old white female who was referred here by Dr. Frederick following a bladder sling and hysterectomy 2 days prior to arrival. Patient has been noticing some frequent urination over the past 24 hours and abdominal discomfort and was sent here to ensure that the patient is not in urinary retention. Patient denies any fever, chills, nausea, vomiting, back pain, chest pain or shortness of breath. Past History Travel History Traveled to [place] past 21 day No Medical History Any Pertinent Medical History? 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 No Review of Systems Review of Systems Constitutional: Reports: see HPI. Denies: no symptoms, chills, diaphoresis, fever, malaise, weakness, unexplained weight loss. Physical Exam Physical Exam General Appearance: well developed/nourished, no apparent distress, alert, awake Head: atraumatic, normal appearance Eyes: Bilateral: normal appearance, PERRL, EOMI. Ears, Nose, Throat: normal pharynx Neck: normal inspection, supple Respiratory: normal breath sounds, chest non-tender, no respiratory distress, quiet respiration Cardiovascular: regular rate/rhythm Gastrointestinal: tenderness (over her laparoscopy sites) Back: normal inspection, normal range of motion Extremities: normal inspection, normal capillary refill Comments: Patient's abdomen is nondistended and only tender at the laparoscopy sites. There is no pulsatile masses or palpable organomegaly. There is no rebound or guarding appreciated Core Measures ACS in differential dx? No CVA/TIA Diagnosis: No Sepsis Present: No Sepsis Focused Exam Completed? No Progress Differential Diagnoses I considered the following diagnoses in my evaluation of the patient: [Acute abdomen, urinary retention, UTI, postoperative pain,] Plan of Care: Laboratory data and imaging. Initial ED EKG: rate, pacemaker rhythm, not indicated Comments: The case was discussed with Dr. Frederick who will follow the patient at his office this week. There is no signs of urinary retention. Departure Departure Disposition: HOME OR SELF CARE Condition: Stable Clinical Impression Primary Impression: Post-operative pain Referrals: aHnh Daniel MD (PCP/Family) Departure Forms: Customer Survey General Discharge Information Critical Care Note Critical Care Note Critical Care Time: non-applicable
== END 2017-12-30 14:23 ==
LOC: ERH 11:18
DX: G89.18 Other acute postprocedural pain (principal)
CPT/HCPCS: 81001